=== PATIENT | male | born 1965 | race Caucasian/White ===

== ENCOUNTER 2019-04-27 12:41 | Emergency (ER) | payer MEDICAID ==
[~2019-04-27] VITALS: Ht 167.6 cm; Wt 125.2 kg
[2019-04-27 13:05] VITALS: Ht 167.6 cm; Wt 125.2 kg
[2019-04-27 15:30] VITALS: BP 139/87
== END 2019-04-27 15:30 | disposition home or self-care (01) ==
LOC: ED 12:41
DX: J98.01 Acute bronchospasm (principal); E11.9 Type 2 diabetes mellitus without complications; M54.6 Pain in thoracic spine
CPT/HCPCS: J7512; Q0092

== ENCOUNTER 2019-05-01 02:30 | Emergency (ER) | payer MEDICAID ==
[~2019-05-01] VITALS: Ht 167.6 cm; Wt 126.1 kg
[2019-05-01 02:42] VITALS: Ht 167.6 cm; Wt 126.1 kg
[2019-05-01 03:31] VITALS: BP 127/69
== END 2019-05-01 03:31 | disposition home or self-care (01) ==
LOC: ED 02:30
DX: J20.9 Acute bronchitis, unspecified (principal); E11.9 Type 2 diabetes mellitus without complications
CPT/HCPCS: J7620

== ENCOUNTER 2019-05-03 17:29 | Emergency (ER) | payer MEDICAID ==
[~2019-05-03] VITALS: Ht 170.2 cm; Wt 125.2 kg
[2019-05-03 17:39] VITALS: Ht 170.2 cm; Wt 125.2 kg
[2019-05-03 18:28] LABS: BASOPHIL % 0.3 % (0-2); PLATELET COUNT 285 x10^3mcL (130-400); RED CELL DISTRIBUTION WIDTH 14.2 % (11.5-14.5)
[2019-05-03 18:43] LABS: CALCIUM 8.7 mg/dL (8.5-10.1); CARBON DIOXIDE 25.2 mmol/L (21-32); CHLORIDE SERUM 103 mmol/L (98-107); CREATININE SERUM 1.1 mg/dL (0.7-1.3); GFR1 > 60 mL/min; GLUCOSE SERUM 115 mg/dL (74-106); POTASSIUM SERUM 3.8 mmol/L (3.5-5.1); SODIUM SERUM 139 mmol/L (136-145)
[2019-05-03 18:50] LABS: ALBUMIN 3.3 g/dL (3.4-5.0); ALKALINE PHOSPHATASE 94 U/L (46-116); ALT/SGPT 42 U/L (16-63); AST/SGOT 16 U/L (15-37); BILIRUBIN TOTAL 0.38 mg/dL (0.20-1.00); TOTAL PROTEIN, SERUM 6.9 g/dL (6.4-8.2)
[2019-05-03 19:09] VITALS: BP 143/79
== END 2019-05-03 19:56 | disposition home or self-care (01) ==
LOC: ED 17:29
PROVIDERS: Emergency Medicine
DX: J98.01 Acute bronchospasm (principal); E11.9 Type 2 diabetes mellitus without complications; M54.6 Pain in thoracic spine
CPT/HCPCS: J0696; J2930; J7030; J7060; J7613

== ENCOUNTER 2020-05-30 15:00 | Emergency (ER) | payer SELFPAY ==
[~2020-05-30] VITALS: Ht 170.2 cm; Wt 127.0 kg
[2020-05-30 15:02] VITALS: BP 142/88; Ht 170.2 cm; Wt 127.0 kg
== END 2020-05-30 16:02 | disposition home or self-care (01) ==
LOC: ED 15:00
DX: J02.9 Acute pharyngitis, unspecified (principal); E11.9 Type 2 diabetes mellitus without complications; Z76.0 Encounter for issue of repeat prescription

== ENCOUNTER 2020-06-01 16:06 | Emergency (ER) | payer MEDICAID ==
[~2020-06-01] VITALS: Ht 170.2 cm; Wt 122.5 kg
[2020-06-01 16:08] VITALS: Ht 170.2 cm; Wt 122.5 kg
[2020-06-01 16:25] VITALS: BP 141/71
== END 2020-06-01 16:59 | disposition home or self-care (01) ==
LOC: ED 16:06
DX: R05 Cough (principal); E11.9 Type 2 diabetes mellitus without complications; Z76.0 Encounter for issue of repeat prescription